=== PATIENT | female | born 1945 | race Caucasian/White ===

== ENCOUNTER 2017-08-28 10:33 | Emergency (ER) | payer OTHER, MEDICARE ==
[~2017-08-28] VITALS: Ht 165.1 cm; Wt 54.6 kg
[2017-08-28 10:40] VITALS: BP 151/78
== END 2017-08-28 12:27 | disposition home or self-care (01) ==
LOC: ED 12:21
DX: S13.4XXA Sprain of ligaments of cervical spine, initial encounter (principal); S80.02XA Contusion of left knee, initial encounter; Z85.43 Personal history of malignant neoplasm of ovary; V89.2XXA Person injured in unspecified motor-vehicle accident, traffic, initial encounter; Y93.89 Activity, other specified; Y92.89 Other specified places as the place of occurrence of the external cause; Y99.9 Unspecified external cause status
CPT/HCPCS: 72050; 72072; 99284